=== PATIENT | female | born 1960 | race Two or more races ===

== ENCOUNTER 2018-12-31 08:59 | Day surgery (SDC) | payer BC ==
[~2018-12-31] VITALS: Ht 172.7 cm; Wt 52.6 kg
[2018-12-31] VITALS (10 sets, daily range): BP systolic 112–143; BP diastolic 75–89
[~2018-12-31 08:59] MED LIST: ceFAZolin sod 1 GM in NS 55 ML IVPB ONE
--- NOTE | 2018-12-31 09:03 | Anethesia Preoperative Eval ---
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 Family History: no anesthesia problems Allergies: Coded Allergies: No Known Allergies (Unverified , 12/31/18) Medications: see eMAR Patient NPO?: Yes NPO Date: Dec 30, 2018 NPO Time: 22:00 Past Medical History Cardiovascular: Denies: HTN, CAD, PR, valve dz, arrhythmia, other Pulmonary: Denies: asthma, COPD, GRANT, other Gastrointestinal/Genitourinary: Denies: GERD, CRI, ESRD, other Neurologic/Psychiatric: Denies: dementia, CVA, depression/anxiety, TIA, other Endocrine: Denies: DM, hypothyroidism, steroids, other HEENT: Denies: cataract (L), cataract (R), glaucoma, WAMPANOAG (L), WAMPANOAG (R), other Hematology/Immune: Denies: anemia, DVT, bleeding disorder, other Musculoskeletal/Integumentary: Denies: OA, RA, DJD, DDD, edema, other PSxH Narrative: multiple septo-rhinoplasties Anesthesia Pre-op Phys. Exam Physician Exam see chart Constitutional: NAD Cardiovascular: RRR Respiratory: CTA Airway Exam Mallampati Score: Class II MO: full ROM: full Teeth: intact Anesthesia Pre-op A/P Labs see chart Studies Pre-op Studies: EKG - sr Risk Assessment & Plan Assessment: ASA II Plan: GA Status Change Before Surgery: No Pre-Antibiotics Drug: Ancef 1g Given Within 1 Hr of Incision: Yes Rose Flores MD Dec 31, 2018 09:03
[2018-12-31] MEDS ORDERED: NKM (09:53)
[2018-12-31] MEDS ORDERED: Propofol 1,000mg/ 100ml btl IV ONE (10:00)
[2018-12-31] MEDS ORDERED: Lidocaine 1% 10mg/ml/EPI 0.01mg/ml 50ml INJ ONE (10:40)
[2018-12-31] MEDS ORDERED: Oxymetazoline 0.05% Na Spray 30ml NASAL ONE (10:40)
[2018-12-31] MEDS ORDERED: Kenalog-40 1ml Vial ONE (10:40)
[2018-12-31] MEDS ORDERED: Cocaine HCl 4% 4ml vial TOPIC ONE (10:40)
[2018-12-31] MEDS ORDERED: Propofol 200mg/20ml IV ONE (10:50)
[2018-12-31] MEDS ORDERED: fentaNYL 100 mcg/2 mL ONE (10:50)
[2018-12-31] MEDS ORDERED: Lidocaine 1% MPF 10mg/ml 5ml ONE (10:50)
[2018-12-31] MEDS ORDERED: Midazolam 2mg/2ml Inj ONE ×2 (10:50→11:43)
--- NOTE | 2018-12-31 10:53 | Pre-Procedure Note/Attestation ---
Pre-Procedure Note/Attestation Complete Prior to Procedure Planned Procedure: not applicable Procedure Narrative: nasal obstruction unresponsive to medication Indications for Procedure Pre-Operative Diagnosis: septal deviation, bilateral hypertrophied inferior turbinates Attestation I attest that I discussed the nature of the procedure; its benefits; risks and complications; and alternatives (and the risks and benefits of such alternatives ), prior to the procedure, with the patient (or the patient's legal registration representative). I attest that, if there was a reasonable possibility of needing a blood transfusion, the patient (or the patient's legal registration representative) was given the [facility] standardized written summary, pursuant to the [place] Blood Safety Act ([place] Health and Safety Code # 1645, as amended). I attest that I re-evaluated the patient just prior to the surgery and that there has been no change in the patient's H&P, except as documented below: Eligio Tamayo MD Dec 31, 2018 10:53
[2018-12-31] MEDS ORDERED: Acetaminophen (Non formulary) 100 ML IV ONE (11:00)
[2018-12-31] MEDS ORDERED: NS Irrig 1000ml ONE (11:30)
[2018-12-31] MEDS ORDERED: Rocuronium Bromide 50mg/5ml Inj IV ONE (11:30)
[2018-12-31] MEDS ORDERED: LR 1000ml ONE (11:30)
[2018-12-31] MEDS ORDERED: Sterile Water Irrig 1000ml IRRIG ONE (11:30)
[2018-12-31] MEDS ORDERED: Dexamethasone 4mg/ml vial ONE (11:40)
[2018-12-31] MEDS ORDERED: Metoclopramide 10mg/2ml Inj ONE (11:40)
[2018-12-31] MEDS ORDERED: Ketorolac 30mg Inj ONE (11:43)
--- NOTE | 2018-12-31 14:42 | Immediate Post-Op Evaluation ---
Immediate Post-Op Evalulation Immediate Post-Op Evalulation Procedure: septoplasty, smr turbs Date of Evaluation: Dec 31, 2018 Time of Evaluation: 14:43 IV Fluids: 1.6L Blood Products: 0 Estimated Blood Loss: 10 Urinary Output: 0 Blood Pressure Systolic: 127 Blood Pressure Diastolic: 78 Pulse Rate: 96 Respiratory Rate: 16 O2 Sat by Pulse Oximetry: 100 Temperature (Fahrenheit): 97.3 Pain Score (1-10): 0 Nausea: No Vomiting: No Complications 0 Patient Status: awake, reacts, patent, none Hydration Status: adequate Drug: Ancef 1g Given Within 1 Hr of Incision: Yes Rose Flores MD Dec 31, 2018 14:42
--- NOTE | 2018-12-31 14:43 | 48 Hour Post Anesthesia Eval ---
Post Anesthesia Evaluation Procedure: septoplasty, smr turbs Date of Evaluation: Dec 31, 2018 Airway: patent Nausea: No Vomiting: No Hydration Status: adequate Cardiopulmonary Status: at baseline Mental Status/LOC: patient returned to baseline Post-Anesthesia Complications: 0 Follow-up care needed: ready to discharge Rose Flores MD Dec 31, 2018 14:43
--- NOTE | 2018-12-31 14:49 | Brief Operative Note ---
Immediate Post Operative Note Operative Note Pre-op Diagnosis: septal deviation, bilateral hypertrophied inferior turbinates Procedure: septoplasty bilateral inferior turbinectomies, reconstruction of bilateral internal and external nasal valves with septal cartilage Post-op Diagnosis: same as pre-op plus - bilateral collapsed internal and external nasal valves Surgeon: Eligio Kurtz Anesthesiologist: Dr. Martínez Anesthesia: MAC Specimen: yes - septum Complications: none Condition: stable Fluids: ringers lactate Estimated Blood Loss: minimal Drains: none Packing: [email or web address] Implant(s) used?: Yes - septal cartilage Eligio Tamayo MD Dec 31, 2018 14:49
--- NOTE | 2019-01-03 03:00 | Operative Note - Dictated ---
DATE OF OPERATION: 12/31/2018 SURGEON: Eligio Tamayo M.D. ANESTHESIOLOGIST: Rose Martínez M.D. ANESTHESIA: MAC. PREOPERATIVE DIAGNOSES: 1. Septal deviation. 2. Bilateral hypertrophied inferior turbinates. POSTOPERATIVE DIAGNOSES: 1. Septal deviation. 2. Bilateral hypertrophied inferior turbinates. 3. Bilateral collapsed internal valves. 4. Bilateral collapsed external valves. PROCEDURES: 1. Septoplasty. 2. Bilateral inferior turbinectomies with intramural coagulation. 3. Reconstruction of bilateral collapsed internal valves with septal cartilage. 4. Repair of bilateral collapsed external nasal valves with septal cartilage and conchal cartilage. INDICATIONS FOR SURGERY: The patient is a 58-year-old female who complains of bilateral nasal obstruction, unresponsive to medication. Her examination reveals a severe left septal deviation and a huge synechiae, which was found out to be septal deviation, which was stuck to the superior aspect of the right inferior turbinate. This combined with the patient's superior hypertrophied inferior turbinates and collapse of the internal and external nasal valves created a bilateral nasal airway obstruction. FINDINGS: Findings at the surgery revealed the patient having severe collapse of the superior aspect of the nasal alae crease and collapse of the mid portion of the nostril corresponding to the internal and external nasal valves. Intranasal examination revealed the septum severely deviated to the right very superiorly and almost fused to the right inferior turbinate. The septum was also found to be severely deviated to the left. Examination revealed the hypertrophy of the inferior turbinates with much of the inferior turbinates having been removed. Further examination revealed collapse of the internal valves corresponding to the deep depression of the alar creases and collapse of the nostril corresponding to the external nasal valves. The right lower lateral cartilage was also found to be deviated to the right secondary to an anatomical deformity. The columella was also deviated to the left especially at its posterior aspect. PROCEDURE AND FINDINGS: The patient was brought to the operating room while premedicated and having received preoperative antibiotics. A sterile marking pen was used to demarcate the collapse of the alae crease and the nostril depression. Sterile Q-tip saturated with Betadine were used to sterilize the intranasal cavity after the patient was placed in supine position on the operating table and underwent satisfactory endotracheal intubation. Once the patient was given IV sedation, the nasal cavity was sprayed with 0.25% Julio C-Synephrine. Sterile Q-tips saturated with Betadine were again used to sterilize the intranasal cavity. Approximately 28 mL of 1% Xylocaine with 1:100,000 epinephrine were used to inject the external nasal framework as well as the septum. A 0.5 inch plain gauze saturated with cocaine was introduced intranasally. The patient was then prepped and draped in the usual sterile fashion. After a suitable period of vasoconstriction, the packing was removed. A #15 blade was used to make the incision just inferior to both lower lateral cartilage. Extensive undermining was then performed over the lower lateral cartilage and the collapse of the area adjacent to the collapsed internal valves. All bleeding was again secured with cautery of which it was very little. The area was then rinsed with Betadine solution. My attention was turned to the intranasal obstruction. A left inferoseptal incision was then made and a left mucoperichondrial mucoperiosteal flap was eventually elevated running into significant scar tissue over the very superior aspect of the bony cartilage. The majority of the deviation of the bony septum was untouched. With the periosteum elevated back to the left posterior choanae, an incision was made between the cartilage and bony septum and a right mucoperiosteal flap was then elevated. Examination in the right nasal cavity revealed that the bony septum was fused to the right middle turbinate and the 2 were with a #15 blade. The portion of the septum was just pushed up against the middle turbinate and fused to it, was then from any attachments and removed from the field of operation with Vickie. That portion of overriding obstructing perpendicular plate of the ethmoid and vomer bone was also incised in strips, from the remainder of the attachments and removed from the field of operation. A similar procedure was performed on the cartilaginous septum, was then placed in Betadine solution to be used later as grafting. Reexamination still revealed good anterior and inferior support. Much of the lower inferior turbinates were then removed. They were still significantly hypertrophied at the very superior aspect of the turbinates. This underwent intramural coagulation and then were outfractured. Re-examination revealed the patient having much improved superior intranasal airway, but there is still collapse of the internal and external nasal valves. The septal cartilage was then cut to fill the internal valve collapse as well as the external nasal valve. The cartilage was then brought into fresh sterile field and the suture of 5-0 plain was placed superiorly and inferiorly to each of the pieces of cartilage, placed beneath the area of internal valve collapse corresponding to the depression externally. The sutures were then pulled tightly and secured in place with Steri-Strips. A similar procedure was performed on the external nasal valve and the suture was then secured in place with Steri-Strips. Re-examination now revealed the patient to have much improved airway with the columella still to the left. The inferior septal cartilage was then extensively crosshatched. We were able to mobilize it more midline position for breathing improving both nasal inflow tracts and straightening the columella. Re-examination now revealed the patient to have a good bilateral nasal airway. All blood was suctioned from the nose and nasopharynx area. A 4-0 plain was used to close the septal incision as well as to splint the septum. A 5-0 plain was used to close the bilateral internal rim incision. It was noted during surgery, the only cartilage that was appreciated was the anterior aspect of the lower lateral cartilage near the dome area, the remaining cartilage laterally in the region of the external nasal valve was missing. There was cartilage further inferior at the junction of the lower lateral cartilage to the junction of the alae with the face. With the incision along the inferior aspect of the lower lateral cartilage now closed with one of the areas left open posteriorly for drainage, Telfa coated with Betadine ointment was placed intranasally and secured with a suture of 3-0 silk. An external dressing consisting of paper adhesive tape and a cast were then secured in place with a pressure dressing and the procedure was terminated. The patient tolerated the procedure well and left the operating room in satisfactory condition. ESTIMATED BLOOD LOSS: 30 mL. COUNTS: Sponge and needle count were correct. Eligio Tamayo M.D. DR: IMTIAZ JOB#: [id number] CC:
== END 2018-12-31 16:00 | disposition home or self-care (01) ==
LOC: SUR 08:59
DX: J34.2 Deviated nasal septum (principal); J34.3 Hypertrophy of nasal turbinates; M95.0 Acquired deformity of nose
CPT/HCPCS: 30140; 30465; 30520; J0690; J1100; J1885; J2250; J2405; J2704; J2765; J3010; 94003; 94150